=== PATIENT | male | born 2000 | race Caucasian/White ===

== ENCOUNTER 2024-04-12 20:24 | Emergency (ER) | payer MEDICAID ==
[2024-04-12 20:26] VITALS: PULSE 84; O2SAT 99
== END 2024-04-12 20:49 | disposition left against medical advice (07) ==
LOC: ER 20:24
DX: R10.2 Pelvic and perineal pain (principal); Z53.21 Procedure and treatment not carried out due to patient leaving prior to being seen by health care provider

== ENCOUNTER 2024-05-16 06:56 | Emergency (ER) | payer MEDICAID ==
[2024-05-16 07:11] VITALS: PULSE 69; O2SAT 98
== END 2024-05-16 08:00 | disposition left against medical advice (07) ==
LOC: ER 06:56
DX: R10.9 Unspecified abdominal pain (principal); Z53.21 Procedure and treatment not carried out due to patient leaving prior to being seen by health care provider

== ENCOUNTER 2024-05-25 06:48 | Emergency (ER) | payer MEDICAID ==
[~2024-05-25] VITALS: Ht 167.6 cm; Wt 65.0 kg
[2024-05-25 07:54] VITALS: O2SAT 98
[2024-05-25 08:31] LABS: CLARITY URINE CLEAR (CLEAR); COLOR URINE YELLOW (YELLOW); GLUCOSE URINE NEGATIVE (NEGATIVE); KETONES URINE NEGATIVE (NEGATIVE); LEUKOCYTE ESTERASE URINE NEGATIVE (NEGATIVE); NITRITE URINE NEGATIVE (NEGATIVE); OCCULT BLOOD URINE NEGATIVE (NEGATIVE); PH URINE 5.5 (4.5-8.0); PROTEIN URINE NEGATIVE (NEGATIVE); SPECIFIC GRAVITY URINE 1.012 (1.005-1.030); UROBILINOGEN URINE 0.2 E.U./dL (0.2-1.0)
[2024-05-25] MEDS ORDERED: CEFTRIAXONE 1GM/50ML 50 ML IV ONE (12:00)
[2024-05-25] MEDS: DOXYCYCLINE HYCLATE 100MG CAPSULE PO ONE (12:33)
[2024-05-25] MEDS: LIDOCAINE HCL 1% 20ML VIAL INFIL ONE (12:37)
[2024-05-25] MEDS: CEFTRIAXONE SODIUM 1G VIAL IM ONE (12:37)
[2024-05-25] MEDS ORDERED: DOXY100C5 MT (14:01)
[2024-05-25 14:14] VITALS: BP 118/78; PULSE 68; RESP 18; TEMP 36.78072; O2SAT 98
== END 2024-05-25 14:15 | disposition home or self-care (01) ==
LOC: ER 07:00
DX: R36.9 Urethral discharge, unspecified (principal)
CPT/HCPCS: 99285; 93976; 81003; 76870; 96372; J0696; J3490